=== PATIENT | male | born 1960 | race Caucasian/White ===

== ENCOUNTER 2025-08-15 14:09 | Outpatient (AMB) | payer MEDICARE, SELFPAY ==
--- NOTE | 2025-08-15 14:11 | A.OFFVIS_ITS ---
Vital Signs 08/15/25 14:13 Height 5 ft 7 in Weight 185 lb 6 oz BMI 29.0 BP 130/72 Blood Pressure Location Rt brachial Position Sitting Pulse 65 Pulse Source Pulse Oximeter Pulse Oximetry (%) 95 Oxygen Delivery Method Room Air Intake Visit Reasons: Shortness of breath Allergies No Known Allergies Allergy (Verified 08/15/25 14:16) HPI HPI Shortness of breath: Details: Germain is a pleasant 65 year old male, former 20 pack year smoker, quit 8+ years ago with underlying RAD, HTN, HLD and chronic sinusitis. He was referred by PCP presenting with persistent wheezing and respiratory concerns. He reports symptoms were notable prior to URI in the Spring however worsened and persisted despite prednisone x 2, doxycycline and Biaxin up until recently. 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 The patient reports that the wheezing is more pronounced during expiration and has been persistent despite treatment, however will dissipate with cough or throat clearing. The patient reportedly experienced mucus plugging, as noted in a previous CT chest scan, and atelectasis was observed, which could be related to mucus retention. He denies cough or dyspnea. The patient has a history of seasonal allergies, which may contribute to respi ratory symptoms. He has been using Zyrtec and Flonase for management, with questions about their continued efficacy. Denies recent allergy testing. The patient has a history of smoking, starting as a teenager and continuing intermittently over the years, with a calculated 20-pack year history. He has not smoked for several years, but the history is significant given the respiratory symptoms. The patient has been diagnosed with reactive airway disease, which may explain the prolonged symptoms following respiratory infections, using Advair with suboptimal effect. [facility] Social History (Updated 08/15/25 @ 14:16 by Kaylee Rubio CMA) Patient Tobacco Use Status: Former Tobacco user Review of Systems Const Denies chills, Denies excessive sweating, Denies fever(s), Denies headache(s) and Denies night sweats Eyes Denies dry eyes, Denies irritation and Denies itchy eyes ENT Reports Normal hearing present, Denies headache(s) and Denies sore throat Card Denies chest pain, Denies chest pain at rest, Denies chest pain with activity, Denies claudication, Denies leg edema, Denies dyspnea, Denies dyspnea on exertion, Denies orthopnea and Denies paroxysmal nocturnal dyspnea Resp Denies chest congestion, Denies cough, Denies excessive phlegm production, Denies pain on inspiration, Denies pain with cough, Denies dyspnea, Denies d yspnea on exertion and Denies stridor Musc Denies myalgias Neuro Reports Normal hearing present and Denies headache(s) Endo Denies excessive sweating Navin/Lymph Denies lymphadenopathy Aller/Immun Denies itchy eyes and Denies seasonal rhinorrhea Physical Exam Vital Signs: Last Vital Signs Pulse 65 08/15/25 14:13 BP 130/72 08/15/25 14:13 Pulse Ox 95 08/15/25 14:13 Oxygen Delivery Method Room Air 08/15/25 14:13 BMI result Body Mass Index 29.0 Const General: cooperative, healthy appearing, comfortable, no acute distress, well developed and alert Orientation/consciousness: patient oriented x3 Limitations: no limitations HEENT Head: Yes normal to inspection, Yes normocephalic and Yes atraumatic Ears: hearing grossly normal bilaterally and external ears normal Eyes General: appearance normal, both eyes and all related structures Eyelids: Yes eyelids normal Sclerae: sclerae normal EOM: EOMs intact bilaterally Neck Neck: Yes normal visual inspection and Yes no lymphadenopathy Lymphatic: no lymphadenopathy noted Chest Chest palpation & inspection: normal inspection of the chest Resp Effort & Inspection: normal respiratory effort, able to speak in complete sentences, no audible wheezes, no cough, no stridor, not tachypneic, no tripod positioning and no use of accessory muscles Auscultation: clear to auscultation bilaterally Cardio Jugular venous distension: no JVD Rate: regular rate Rhythm: regular rhythm Skin Other: warm, dry General skin exam: no rashes or lesions noted Neuro General: patient oriented x3 Cranial nerves: Yes Normal hearing present Cognition (Neuro): normal cognition Gait exam (Neuro): Normal gait present Extrem General: Yes normal to inspection, Yes capillary refill normal, Yes no clubbing, cyanosis or edema and Yes no pedal edema Psych Appearance: grossly normal and well kempt Speech and movement: Normal speech and movement present and Clear speech present Affect: normal affect Attitude: cooperative Thought process: Normal thought process present Thought content: Normal thought content present Insight: Good insight present (Psych) Judgement: Good judgement present (Psych) Assessment & Plan Assessment & Plan (1) Reactive airway disease: Code(s): J45.909 - Unspecified asthma, uncomplicated Category: Medical (2) Personal history of tobacco use: Code(s): Z87.891 - Personal history of nicotine dependence Category: Social Hx (3) Environmental allergies: Code(s): Z91.09 - Other allergy status, other than to drugs and biological substances Category: Medical Plan Discussed with the patient the possibility of asthma or COPD given the persistent wheezing and recommended a pulmonary function test to evaluate lung function. We talked about increasing the Advair dosage to better manage symptoms and the importance of allergy testing to identify specific triggers. Will attempt to obtain chest CT images and possibly repeat in 6-12 months to assess stability given smoking history, All questions were answered and patient is in agreement of plan. Will follow up in 8-10 weeks or sooner if needed. Orders: Orders Resp Allergy Profile Region I Today Z91.09 - Other allergy status, other than to drugs and biological substances Immunoglobulin E Today Z91.09 - Other allergy status, other than to drugs and biological substances Complete Blood Count Auto Diff Today Z91.09 - Other allergy status, other than to drugs and biological substances PFT pulmonary function test Today J45.909 - Unspecified asthma, uncomplicated Medications: New fluticasone propion-salmeterol 115-21 mcg/actuation (Advair HFA) 2 puffs inhalation Q12H 12 grams 3RF Coding Level of Care Code New Pt Level 4 (06898) Diagnoses Reactive airway disease J45.909 Personal history of tobacco use Z87.891 Environmental allergies Z91.09
[2025-08-15 14:13] VITALS: BP 130/72; PULSE 65; O2SAT 95; BMI 29.0
--- OUTSIDE RECORDS SUMMARY | 2025-08-15 15:32 | XMS_ITS | Clinical Summary ---
Author Organization [facility] Address [address] [address] Phone Care Team Providers Care Operational Risk Analyst Name Role Phone Unavailable Primary Care Provider Unavailabl e Social History Tobacco Use Types Packs/Day Years Used Date Smoking Tobacco: Never Assessed Education Answer Date Recorded Are you interested in more education? Not on mario e 03/14/2023 Are you concerned about learning? Not on file 03/14/2023 No 03/14/2023 No 03/14/2023 Digital Access Answer Date Recorded No 04/14/2023 No 04/14/2023 Reliable internet access at home? Not on file 04/14/2023 Device with a working camera? Not on file Sex and Gender Information Value Date Recorded Sex Assigned at Not on file Legal Sex Male 4:24 PM EST Gender Identity Not on file Sexual Orientation Not on file Plan of Treatment Not on file Medical Devices Not on file Additional Source Comments The information contained in this document represents components of the legal health record. It is not the complete legal health record.[facility]
--- OUTSIDE RECORDS SUMMARY | 2025-08-15 15:32 | XMS_ITS ---
Author Name [facility] Organization Unknown Care Team Organization Name Specialty Phone Email Start Date End Da te [facility] 02/17/2023 07/04/2024 [facility] 09/23/2022 07/04/2024
--- OUTSIDE RECORDS SUMMARY | 2025-08-15 15:32 | XMS_ITS | Clinical Summary ---
Author Organization [facility] [address] [facility] Address [address] [place] [phone] Phone Care Team Providers Care Geneticist Name Role Phone Eliane Burris MD Primary Care Provider Allergies Active Allergy Reactions Criticality Noted Date Comments Pollen Extracts 04/21/2019 Medications cetirizine (ZyrTEC) 10 mg tablet Take 1 tablet (10 mg total) by mouth. Active multivitamin with minerals tablet Take 1 tablet by mouth 1 (one) time each day. Active fluticasone propionate (FLONASE) 50 mcg/actuation nasal spray Administer 2 sprays into affected nostril(s). Active aspirin 81 mg EC tablet Take 81 mg by mouth daily. Active calcium carb/vit D3/minerals (CALCIUM-VITAM IN D ORAL) Take by mouth daily. Active amLODIPine (NORVASC) 10 mg tablet TAKE 1 TABLET BY MOUTH EVERY DAY 90 tablet 2 5 Active fluticasone propion-salmet Kimmie (Advair HFA) 45-21 mcg/actuation inhaler Inhale 2 puffs by mouth 2 (two) times a day. Rinse mouth with water after use to reduce aftertaste and incidence of candidiasis. Do not swallow. 12 g 5 5 Active metoprolol succinate (TOPROL-XL) 25 mg 24 hr tablet TAKE 1 TABLET BY MOUTH EVERY DAY 90 tablet 1 5 Active rosuvastatin (CRESTOR) 10 mg tablet Take 1 tablet (10 mg total) by mouth 1 (one) time each day. 90 tablet 1 5 Active rosuvastatin (CRESTOR) 10 mg tablet TAKE 1 TABLET BY MOUTH EVERY DAY 90 tablet 1 5 07/26/20 25 Discontinu ed(Reorder ) Active Problems Problem Noted Date Diagnosed Date Prediabetes 07/29/2024 Assessment & Plan (01/26/2025 2:44 PM EDT): Orders: Hemoglobin A1c; Future Microalbumin and creatinine with ratio, urine timed; Future Reactive airway disease 07/29/2024 Primary osteoarthritis of left knee 06/01/2024 Assessment & Plan (01/26/2025 11:12 PM EDT): First degree heart block 08/24/2023 Palpitations 01/29/2022 Overview (09/23/2024): Last Assessment & Plan: Patient has a history of palpitations. 48-hour Holter monitor completed in the past showed frequent PACs. He was started on metoprolol succinate 25 mg orally daily. He continues to take the metoprolol at night. He does notice occasional palpitations that last for a few seconds at a time, however denies any worsening symptoms. We reviewed the possible triggers of palpitations including caffeine consumption, alcohol consumption, cigarette smoking, inadequate sleeping patterns, and stress. At this point, the patient will attempt to avoid the usual triggers. We also discussed sleep apnea and its role on the heart. The patient denies any symptoms of sleep apnea. I did offer to order the patient for a sleep study given his history of atrial ectopy, however the patient does not want to proceed with this at this time. He will notify me if symptoms worsen. HTN (hypertension) 07/08/2021 Overview (09/23/2024): Last Assessment & Plan: The patient has a history of hypertension. His blood pressure is noted to be well controlled today with a reading of 122/70. We will continue his current antihypertensive medication regimen with amlodipine and metoprolol. Assessment & Plan (01/26/2025 2:44 PM EDT): Orders: Comprehensive metabolic panel; Future Primary osteoarthritis of right hip 12/24/2020 Coronary artery calcification 11/06/2019 Overview (09/23/2024): Last Assessment & Plan: Patient has a history of coronary artery calcifications seen on prior chest CT. He denies any exertional symptoms and lives a very active lifestyle. He continues on medical therapy with aspirin, statin, and metoprolol. We will continue current therapies. Thoracic aortic ectasia (CMS/HCC V24) 11/06/2019 Assessment & Plan (01/26/2025 2:44 PM EDT): Anemia in other chronic diseases classified else where 05/14/2018 Epigastric discomfort 05/14/[address] scan, chest 09/21/2017 Overview (09/23/2024): 09/21/2017: Scarring shown on CT chest. 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 He continues on rosuvastatin orally daily. His last LDL cholesterol was noted to be 78. I have reviewed with the patient the importance of a heart healthy lifestyle which includes eating a low-fat low-salt diet, getting regular exercise, maintaining a healthy weight, not smoking, and following up with routine medical care. Assessment & Plan (01/26/2025 2:44 PM EDT): Orders: Lipid panel with reflex to direct LDL; Future Comprehensive metabolic panel; Future Encounters Date Type Department Care Team Description 06/26/2025 Telephone Adult Medicine [facility] [address] [place], [place] [phone] Eliane Burris MD 05/18/2025 12:26 PM EDT - 05/18/2025 11:59 PM EDT Hospital Encounter CT Scan - [facility] [address] [place], [place] [phone] Wheezing; Lung crackles; Productive cough Discharge Disposition: Home or Self Care from Last 3 Months Immunizations Immunization Administration Dates Next Due Influenza Quadravalent, MDCK , 0.5ml, preservative free (Flucelvax) 6mo and older 07/28/2023 Influenza trivalent, 0.5mL (Fluad) 65yo and olde r 07/29/2024 Influenza trivalent, 0.5mL ( Fluzone High-dose) 65yo and older 07/29/2024 Influenza trivalent, 0.5mL, preservative free (Fluarix; FluLaval; Fluzone) ages 6mo and older (Afluria) 3 years and older 10/22/2016 Td Tetanus diptheria (Tdvax) 7yo and older 12/11 Tdap Tetanus diptheria acell ular pertussis (Boostrix; Adacel) 7yo and older 02/20/2023,04/05/2012 Zoster recombinant (Shingrix) 19yo and older ,08/17/2021 Surgical History Surgery Date Site/Laterality Comments COLONOSCOPY 05/16/2011 PROCEDURE: [place] COLONOSCOPY FLX DX W/COLLJ SPEC WHEN PFRMD; COMMENT: Normal MOLE REMOVAL PROCEDURE: HISTORICAL MOLE (REMOVAL OF) Medical History Medical History Date Comments Pure hypercholesterolemia 04/29/2006 DX:Pur e hypercholesterolemia Chest pain, unspecified 12/17/2006 DX:Chest pain, unspecified Dysplastic nevus 08/03/2011 DX:Dysplastic n evus Abnormal CT scan, chest 09/21/2017 DX:Abnor mal CT scan, chest Abnormal CT scan, chest 09/21/2017 DX:Abnor mal CT scan, chest; COMMENT: 09/21/2017: Scarring shown on CT chest. Recommend 3 month follow up Family History Medical History Relation Name Comments Diabetes Father Heart attack Father cad in his 70s Arthritis Mother Heart attack Mother cad in her 50's Other Dermatological Disorders Mother carcinoma ....specifics unknown Arthritis Sister TKR Relation Name Status Comments Father Mother Sister Social History Tobacco Use Types Packs/Day Years Used Date Smoking Tobacco: Former Cigarettes 0.3 50.9 0 12/09/1965 - 11/16/2016 Smokeless Tobacco: Former Tobacco Cessation:Counseling Given: Not Answered Alcohol Use Standard Drinks/Week Comments Yes 2 (1 standard drink = 0.6 oz pur e alcohol) Sex and Gender Information Value Date Recorded Sex Assigned at Not on file Legal Sex Male 9:50 PM EST Gender Identity Not on file Sexual Orientation Not on file Obstetrics History Last Filed Vital Signs Vital Sign Reading Time Taken Comments Blood Pressure 110/58 05/11/2025 12:59 PM EDT Pulse 64 05/11/2025 12:59 PM EDT Temperature 36.2 C (97.1 F) 05/11/2025 12:59 PM EDT Respiratory Rate 20 05/11/2025 12:59 PM EDT Oxygen Saturation 95% 04/17/2025 1:44 PM EDT Inhaled Oxygen Concentration - - Weight 83.5 kg (184 lb) 05/11/2025 12:59 PM EDT Height 170.2 cm (5' 7 ) 05/11/2025 12:59 PM EDT Body Mass Index 28.82 05/11/2025 12:59 PM EDT Plan of Treatment Upcoming Encounters Date Type Department Care Team (Late st Contact Info) Description 08/23/2025 8:30 AM EDT Office Visit Adult Medicine [address] [phone] Eliane Burris MD [address] [place] [phone] Health Maintenance Due Date Last Done Comments Pneumococcal Vaccine: 50+ Years (1 of 1 - PCV) 2009 Abdominal Aortic Aneurysm (AAA) Screen 12/17/2019 Social Influencers of Health Screening 12/17/2019 COVID-19 Vaccine ( season) 2025 09/09/2022, 11/18/2021, 03/24/2021, Additional history exists Influenza Vaccine (#1) 2025 , 07/29/2024, 07/28/2023, Additional history exists Falls Risk Assessment 01/26/2026 01/26/2025 Medicare Annual Wellness Visit 01/26/2026 01/26/2025 Hypertension/CHF/CAD Annual BMP Blood Test 04/18/2026 04/18/2025, 07/28/2023 Cholesterol Screening (Lipid Panel) 04/18/2030 04/18/2025, 04/20/2024, 04/20/2024 Colorectal Cancer Screening: Colonoscopy 06/26/2032 06/26/2022, 06/26/2022 DTaP,Tdap,and Td Vaccines (4 - Td or Tdap) 02/20/2033 02/20/2023, 04/05/2012, 12/11/2005 RSV Immunization Adult Patients (1 - 1-dose 75+ series) 2034 Hepatitis C Screening Completed 02/25/2014 Zoster Vaccines Completed 12/09/2021, 08/17/2021 Depression Screening Completed 01/26/2025 HIB Vaccines Aged Out No longer eligi ble based on patient's age to complete this topic HPV Vaccines Aged Out No longer eligi ble based on patient's age to complete this topic Hepatitis A Vaccines Aged Out No long er eligible based on patient's age to complete this topic Hepatitis B Vaccines Aged Out No long er eligible based on patient's age to complete this topic IPV Vaccines Aged Out No longer eligi ble based on patient's age to complete this topic MMR Vaccines Aged Out No longer eligi ble based on patient's age to complete this topic Meningococcal ACWY Vaccine Aged Out N o longer eligible based on patient's age to complete this topic Meningococcal B Vaccine Aged Out No l onger eligible based on patient's age to complete this topic RSV Immunization Patients Under 20 months Aged Out No longer eligible based on patient's age to complete this topic Varicella Vaccines Aged Out No longer eligible based on patient's age to complete this topic Procedures Procedure Name Priority Date/Time Associated Diagnosis Comments CT CHEST WO CONTRAST Routine 05/18/2025 12:49 PM EDT Wheezing Lung crackles Productive cough COMPREHENSIVE METABOLIC PANEL Routine 04/18/2025 7:45 AM EDT Primary hypertension Other hyperlipidemia LIPID PANEL WITH REFLEX TO DIRECT LDL Routine 04/18/2025 7:45 AM EDT Other hyperlipidemia COLONOSCOPY Routine 06/26/2022 HEPATITIS C SCREENING Routine 02/25/2014 from Last 3 Months or Most Recently Relevant to Health Maintenance Results * CT Chest wo Contrast (05/18/2025 12:49 PM EDT) Anatomical Region Laterality Modality Body Computed Tomogra phy 05/20/2025 3:51 PM EDT Narrative 05/20/2025 4:[address] without intravenous contrast. History persistent wheezing and rhonchi. Comparison with some prior examinations, latest from 01/28/2021. Major airways are patent. Again noted are areas of atelectasis/scarring in the medial aspect of the right middle lobe as well as at the right base anterior medially. Minimal scarring/atelectasis was noted in the lingula. There is no evidence of pulmonary nodules or acute airspace consolidations. There is no pleural or pericardial effusion. There is arm no gross mediastinal or hilar lymphadenopathy. Evaluation is limited due to lack of intravenous contrast. There are atherosclerotic calcifications in the coronary arteries. Visualized portions of the abdominal organs are stable in appearance. CONCLUSIONS: Stable chronic changes as detailed. No acute CT abnormalities in the chest. -------- FINAL REPORT -------- Dictated By: Tanvi Lobato Dictated Date: 05/20/2025 15:51 ET Assigned Physician: Tanvi Lobato Reviewed and Electronically Signed By: Tanvi Lobato Signed Date: 05/20/2025 16:04 ET Workstation ID: [id number] Transcribed By: Self Edit Transcribed Date: 05/20/2025 15:51 ET Procedure Note Tanvi Lobato MD - 05/20/[address] without intravenous contrast. History persistent wheezing and rhonchi. Comparison with some prior examinations, latest from 01/28/2021. Major airways are patent. Again noted are areas of atelectasis/scarring inthe medial aspect of the right middle lobe as well as at the right baseanterior medially. Minimal scarring/atelectasis was noted in the lingula.There is no evidence of pulmonary nodules or acute airspaceconsolidations. There is no pleural or pericardial effusion. There is arm no grossmediastinal or hilar lymphadenopathy. Evaluation is limited due to lack ofintravenous contrast. There are atherosclerotic calcifications in thecoronary arteries. Visualized portions of the abdominal organs are stable in appearance. CONCLUSIONS: Stable chronic changes as detailed. No acute CT abnormalitiesin the chest. -------- FINAL REPORT -------- Dictated By: Tanvi Lobato Dictated Date: 05/20/2025 15:51 ET Assigned Physician: Tanvi Lobato Reviewed and Electronically Signed By: Tanvi Lobato Signed Date: 05/20/2025 16:04 ET Workstation ID: [id number] Transcribed By: Self Edit Transcribed Date: 05/20/2025 15:51 ET Eliane Burris MD [facility] [place] PROCEDURES Final Result * (ABNORMAL) Lipid panel with reflex to direct LDL (04/18/2025 7:45 AM EDT) Cholesterol 159 0 - 200 mg/dL LAB CHEMISTRY METHOD [facility]/18[facility]25 [facility] Triglycerides 292(H) 0 - 150 mg/dL LAB CHEMISTRY METHOD 04/18/2025 11:01 AM EDT [facility] HDL 41 >=40 mg/dL LAB CHEMISTRY METHOD 04/18/2025 11:01 AM EDT [facility] LDL Calculated 60 0 - 100 mg/dL LAB CHEMISTRY METHOD 04/18/2025 11:01 AM [facility] VLDL Cholesterol Alf 58.4 mg/dL LAB CHEMISTRY METHOD 04/18/2025 11:[facility] Non HDL Chol. (LDL+VLDL) 118 <145 mg/dL LAB CHEMISTRY METHOD 04/18/2025 11:01 AM [facility] Chol/HDL Ratio 3.9 0.0 - 4.4 LAB CHEMISTRY METHOD 04/18/2025 11:01 AM [facility] Blood Venous blood specimen / Unknown Venipuncture / Unknown 04/18/2025 7:45 AM EDT 04/18/2025 7:45 AM EDT us Eliane Burris MD LAB BLOOD ORDERABLES Final Resul t [facility] [address] [place] [address], [place] [phone] * (ABNORMAL) Comprehensive metabolic panel (04/18/2025 7:45 AM EDT) Sodium 139 133 - 145 mmol/L LAB CHEMISTRY METHOD 04/18/2025 11:01 AM [facility] Potassium 4.4 3.5 - 5.5 mmol/L LAB CHEMISTRY METHOD 04/18/2025 11:01 AM [facility] Chloride 104 96 - 110 mmol/L LAB CHEMISTRY METHOD 04/18/2025 11:01 AM [facility] CO2 30 21 - 32 mmol/L LAB CHEMISTRY METHOD 04/18/2025 11:01 AM [facility] Anion Gap 5 3 - 11 LAB CHEMISTRY METHOD 04/18/2025 11:01 AM [facility] Glucose 135(H) 70 - 100 mg/dL LAB CHEMISTRY METHOD 04/18/2025 11:01 AM [facility] BUN 14 5 - 25 mg/dL LAB CHEMISTRY METHOD 04/18/2025 11:01 AM [facility] Creatinine 0.88 0.70 - 1.30 mg/dL LAB CHEMISTRY METHOD 04/18/2025 11:01 AM [facility] eGFR 95 >=60 mL/min/1. 73m2 LAB CHEMISTRY METHOD 04/18/2025 11:01 AM [facility] Comment:Calculation based on the Chronic Kidney Disease Epidemiology Collaboration (CKD-EPI) equation refit without adjustment for race. BUN/Creatinine Ratio 15.9 LAB CHEMISTRY METHOD 04/18/2025 11:01 AM [facility] Calcium 9.1 8.5 - 10.5 mg/dL LAB CHEMISTRY METHOD 04/18/2025 11:01 AM [facility] AST (SGOT) 26 10 - 42 unit/L LAB CHEMISTRY METHOD 04/18/2025 11:01 AM [facility] ALT (SGPT) 42 10 - 60 unit/L LAB CHEMISTRY METHOD 04/18/2025 11:01 AM [facility] Alkaline Phosphatase 84 42 - 121 unit/L LAB CHEMISTRY METHOD 04/18/2025 11:01 AM [facility] Total Protein 7.5 6.0 - 8.0 g/dL LAB CHEMISTRY METHOD 04/18/2025 11:01 AM [facility] Albumin 4.0 3.2 - 5.0 g/dL LAB CHEMISTRY METHOD 04/18/2025 11:01 AM [facility] Total Bilirubin 0.5 0.0 - 1.4 mg/dL LAB CHEMISTRY METHOD 04/18/2025 11:01 AM [facility] Blood Venous blood specimen / Unknown Venipuncture / Unknown 04/18/2025 7:45 AM EDT 04/18/2025 7:45 AM EDT us Eliane Burris MD LAB BLOOD ORDERABLES Final Resul t [facility] [address] [place] [address], * Hm Colonoscopy (06/26/2022) Colonoscopy NO INTERPRETATION , ABSTRACTED Anatomical Region Laterality Modality Other Historical Provider HEALTH MAINTENANCE Final Result * Hepatitis C Screening (02/25/2014) Hepatitis C Screening ABSTRACTED us Historical Provider HEALTH MAINTENANCE Final Result from Last 3 Months or Most Recently Relevant to Health Maintenance Insurance [employer] - [place] MEDICARE ADVANTAGE Care Teams Geneticist Relationship Specialty Start Date End Date Eliane Burris MD [address] [place] [address] PCP - General Internal Medicine 11/12/18
== END 2025-08-15 14:50 | disposition home or self-care (01) ==
LOC: HO.HPSW 14:10
PROVIDERS: PCP Internal Medicine; Visit Provider Nurse Practitioner Family
DX: J45.909 Unspecified asthma, uncomplicated (principal); Z87.891 Personal history of nicotine dependence; Z91.09 Other allergy status, other than to drugs and biological substances
CPT/HCPCS: 99204

== ENCOUNTER 2025-08-15 14:09 | Outpatient (REF) | payer MEDICARE, SELFPAY ==
[2025-08-15 18:06] LABS: MANUAL DIFF FLAG NO
[2025-08-15 18:17] LABS: Hematocrit 38.1 % (42.0-52.0); Hemoglobin 13.5 g/dl (14.0-18.0); Imm Gran Abs Auto 0.03 X10*3/uL (0.00-0.03); Imm Gran Pct Auto 0.4 % (0.0-0.4); Lymphocytes Absolute Auto 1.8 X10*3/uL (1.2-4.9); Mean Corpuscular HGB Conc 35.4 g/dl (31.0-36.0); Mean Corpuscular Hemoglobin 30.8 pg (27.0-33.0); Mean Corpuscular Volume 87.0 fL (80.0-98.0); NRBC Abs Auto 0.000 X10*3/uL (0.0-0.012); NRBC Pct Auto 0.0 /100WBC (0.0-0.2); Platelet Count 238 X10*3/uL (160-400); Red Blood Count 4.38 X10*6/uL (4.60-5.80); White Blood Count 6.8 X10*3/uL (4.8-10.8)
[2025-08-17 02:28] LABS: Class Alternaria alternata 0; Class Aspergillus fumigatus 0; Class Bermuda Grass 0; Class Birch 0; Class Cat Dander 0; Class Cladosporium herbarum 0; Class Cockroach 0; Class Common Ragweed 0; Class Cottonwood 0; Class Derm. pterony 0; Class Dermatophagoides farinae 0; Class Dog Dander 0; Class Elm 0; Class Maple Box Elder 0; Class Mountain Cedar 0; Class Mouse Urine Protein 0; Class Mugwort 0; Class Oak 0; Class Penicillium crysogenum 0; Class Rough Pigweed 0; Class Sheep Sorrel 0; Class Sycamore 0; Class Timothy Grass 0; Class Walnut Tree 0; Class White Ash 0; Class White Mulberry 0; D002 - IgE D farinae <0.10 kU/L; E001 - IgE Cat Dander <0.10 kU/L; E005 - IgE Dog Dander <0.10 kU/L; G006 - IgE Timothy Grass <0.10 kU/L; I006-IgE Cockroach, German <0.10 kU/L; M002 - IgE Cladosporium herbar <0.10 kU/L; M003 - IgE Aspergillus fumigat <0.10 kU/L; M006 - IgE Alternaria alternat <0.10 kU/L; T001 IgE Maple/Box Elder <0.10 kU/L; T006 - IgE Cedar, Mountain <0.10 kU/L; T007 - IgE Oak, White <0.10 kU/L; T008 IgE Elm, American <0.10 kU/L; T010 - IgE Walnut <0.10 kU/L; T011 - IgE Maple Leaf Sycamore <0.10 kU/L; T014 - IgE Cottonwood <0.10 kU/L; T015 - IgE Ash, White <0.10 kU/L; T070 - IgE White Mulberry <0.10 kU/L; W001 - IgE Ragweed, Short <0.10 kU/L; W006 - IgE Mugwort <0.10 kU/L; W014 IgE Pigweed, Common <0.10 kU/L; W018 IgE Sheep Sorrel <0.10 kU/L
== END 2025-08-15 14:10 | disposition home or self-care (01) ==
LOC: HO.WFDLDS 14:09
PROVIDERS: PCP Internal Medicine; Visit Provider Nurse Practitioner Family
DX: J45.909 Unspecified asthma, uncomplicated (principal); Z87.891 Personal history of nicotine dependence; Z91.09 Other allergy status, other than to drugs and biological substances
CPT/HCPCS: 36415; 82785; 85025; 86003; 99202